=== PATIENT | male | born 1995 ===

== ENCOUNTER 2018-07-01 11:35 | Emergency (ER) | payer OTHER ==
[2018-07-01 11:45] VITALS: BP 122/77
--- NOTE | 2018-07-01 12:28 | UC ---
Throat Pain/Nasal Juan HPI - HPI Summary HPI Summary: 22 yo male presents with sore throat for the last 3 days. Sore throat has been getting progressively worse. Last night he was looking in his throat and noticed a "cut" on his left tonsil that looked like it was bleeding. He is able to eat and drink, but has significant pain. Unsure how or when the tonsil got cut. Denies fever, chills, sinus symptoms, cough, rash, n/v. - History of Current Complaint Chief Complaint: UCGeneralIllness Stated Complaint: MOUTH,THROAT COMPLAINT Time Seen by Provider: 07/01/18 12:28 Hx Obtained From: Patient Onset/Duration: Sudden Onset Severity: Moderate Pain Intensity: 6 Pain Scale Used: 0-10 Numeric - Allergies/Home Medications Allergies/Adverse Reactions: Allergies Allergy/AdvReac Type Severity Reaction Status Date / Time No Known Allergies Allergy Verified 07/01/18 11:46 PMH/Surg Hx/FS Hx/Imm Hx - Additional Past Medical History Additional PMH: None - Surgical History Surgical History: None - Family History Known Family History: Positive: None - Social History Occupation: Employed Full-time Lives: With Family Alcohol Use: None Substance Use Type: Marijuana Smoking Status (MU): Never Smoked Tobacco Review of Systems All Other Systems Reviewed And Are Negative: Yes Constitutional: Positive: Negative Skin: Positive: Negative Eyes: Positive: Negative ENT: Positive: Sore Throat Respiratory: Positive: Negative Cardiovascular: Positive: Negative Gastrointestinal: Positive: Negative Neurological: Positive: Negative Psychological: Positive: Negative Physical Exam - Summary Physical Exam Summary: GENERAL: NAD. WDWN. No pain distress. SKIN: No rashes, sores, lesions, or open wounds. HEENT: Head: AT/NC Eyes: Conjunctiva clear without inflammation or discharge. Ears: Hearing grossly normal. TMs intact, no bulging, erythema, or edema. Nose: Nasal mucosa pink and moist. NTTP maxillary and frontal sinus. Throat: Posterior oropharynx mild erythema and 2+ tonsillar enlargement. Left tonsil with 5mm ?laceration with clotted blood. No exudates. Uvula midline. No hoarse voice or muffled voice. NECK: Supple. Nontender. No lymphadenopathy. CHEST: CTAB. No r/r/w. No accessory muscle use. Breathing comfortably and in no distress. CV: RRR. Without m/r/g. Pulses intact. Cap refill <2seconds NEURO: Alert. PSYCH: Age appropriate behavior. Triage Information Reviewed: Yes Vital Signs: Initial Vital Signs Temp 98.8 F 07/01/18 11:42 Pulse 81 07/01/18 11:42 Resp 18 07/01/18 11:42 BP 122/77 07/01/18 11:42 Pulse Ox 100 07/01/18 11:42 Laboratory Tests 07/01/18 12:14 Group A Strep Rapid Negative Vital Signs Reviewed: Yes Throat Pain/Nasal Course/Dx - Course Course Of Treatment: POC strep negative. Will send for a throat culture and cover him with clinda and chlorhexidine. - Differential Dx/Diagnosis Provider Diagnosis: Acute tonsillitis Discharge - Sign-Out/Discharge Documenting (check all that apply): Patient Departure All imaging exams completed and their final reports reviewed: No Studies - Discharge Plan Condition: Stable Disposition: HOME Prescriptions: Chlorhexidine MW 0.12% 473ML* [Peridex Mouth Wash 0.12%] 15 ml MT DAILY #1 bottle Clindamycin Cap(NF) [Clindamycin Cap 300 mg Cap(NF)] 300 mg PO TID #30 cap Ibuprofen TAB* [Motrin TAB* 800 MG] 800 mg PO Q8H PRN #60 tab PRN Reason: Pain Lidocaine 2% VISCOUS* [Xylocaine 2% Viscous*] 15 ml SWISH SWAL Q6H PRN #250 ml PRN Reason: Pain Patient Education Materials: Pharyngitis (ED) Referrals: No Primary Care Phys,NOPCP [Primary Care Provider] - Additional Instructions: If you develop a fever, shortness of breath, chest pain, new or worsening symptoms - please call your PCP or go to the ED. 1) You may swallow the chlorhexidine mouth wash, but it may upset your stomach - please try to gargle it and spit it out. - Billing Disposition and Condition Condition: STABLE Disposition: Home
== END 2018-07-01 13:06 | disposition home or self-care (01) ==
LOC: UCEAST 11:35
DX: J03.90 Acute tonsillitis, unspecified (principal)
CPT/HCPCS: 87070; 87651; 99202; G0463

== ENCOUNTER 2019-02-06 11:02 | Emergency (ER) | payer OTHER ==
[2019-02-06] MEDS ORDERED: Lidocaine 1% MPF ** 5 ML VIAL IM ONE (11:07)
[2019-02-06] MEDS ORDERED: cefTRIAXone VIAL(*) 250 MG VIAL IM ONE (11:07)
--- NOTE | 2019-02-06 11:13 | UC ---
Complaint Male HPI - HPI Summary HPI Summary: 23-year-old male accomplained by girlfriend for STD exposure. Patient states 2 weeks ago he tested positive for chlamydia. He was treated with Jackson presumably azithromycin. Patient informed preference and she came here for STD testing. He is concerned as he is not treated for gonorrhea and would like treatment. Patient also requesting HIV and syphilis testing. Patient denies dysuria or penile lesions. - History of Current Complaint Stated Complaint: PERSONAL Time Seen by Provider: 02/06/19 11:07 - Allergies/Home Medications Allergies/Adverse Reactions: Allergies Allergy/AdvReac Type Severity Reaction Status Date / Time No Known Allergies Allergy Verified 01/28/19 09:51 PMH/Surg Hx/FS Hx/Imm Hx Previously Healthy: Yes GI/ History: Other - Chlamydia Other History Of: Negative For: Anticoagulant Therapy - Surgical History Surgical History: None - Family History Known Family History: Positive: None, Non-Contributory - Social History Alcohol Use: Occasionally Substance Use Type: Marijuana Smoking Status (MU): Former Smoker Review of Systems All Other Systems Reviewed And Are Negative: Yes Genitourinary: Negative: Frequency, Urgency, Vaginal/Penile Burning, Vaginal/ Penile Itching, Vaginal/Penile Discharge, Vaginal/Penile Pain Physical Exam - Summary Physical Exam Summary: General: Well appearing, no distress Cardiovascular: Skin is well perfused Pulmonary: No respiratory distress, no tachypnea Abdomen: Non-distended Skin: Warm, pink, dry MSK: no edema Psych: Normal affect Neuro: A&Ox3 Complaint Male Course/Dx - Course Course Of Treatment: 23-year-old male who presents for STD testing and treatment. Patient is asymptomatic however given recent positive chlamydia but not treated for gonorrhea, chuy get ceftriaxone IM 1. HIV and RPR sent out. - Differential Dx/Diagnosis Provider Diagnosis: STD exposure Discharge - Sign-Out/Discharge Documenting (check all that apply): Patient Departure All imaging exams completed and their final reports reviewed: No Studies - Discharge Plan Condition: Stable Disposition: HOME Patient Education Materials: Chlamydia (ED), Sexually Transmitted Diseases (ED) , Safe Sex (ED) Referrals: [facility] [Outside] Additional Instructions: You were seen for STD testing. We sent a gonorrhea and chlamydia test, this will take several days result. We prophylactically treated you for exposure to gonorrhea since you were treated for chlamydia. We also sent an HIV blood test and syphilis test. You will be called if any of these results are abnormal. If you test positive for an STD please inform your partners as they need to be treated as well. Please practice safe sex and use protection including condoms. - Billing Disposition and Condition Condition: STABLE Disposition: Home
[2019-02-06 11:32] VITALS: BP 128/63
== END 2019-02-06 11:59 | disposition home or self-care (01) ==
LOC: UCEAST 11:02
DX: Z20.2 Contact with and (suspected) exposure to infections with a predominantly sexual mode of transmission (principal); Z87.891 Personal history of nicotine dependence
CPT/HCPCS: 36415; 86780; 87389; 96372; 99212; G0463; J0696

== ENCOUNTER 2019-07-25 15:30 | Emergency (ER) | payer OTHER ==
[2019-07-25 15:41] VITALS: BP 117/82
--- NOTE | 2019-07-25 16:02 | UC ---
Ear Complaint HPI - HPI Summary HPI Summary: His right ear started bothering him last night. He hasn't had a recent upper respiratory tract infection. He has had troubles with ear infections in the past. He hasn't been swimming. - History of Current Complaint Chief Complaint: UCEar Stated Complaint: EAR COMPLAINT Time Seen by Provider: 07/25/19 15:52 Hx Obtained From: Patient Onset/Duration: Sudden Onset Severity Initially: Moderate Severity Currently: Moderate Pain Intensity: 7 Aggravating Factors: Nothing Alleviating Factors: Nothing Associated Signs/Symptoms: Negative: Discharge, Hearing Loss, Foreign Body Sensation, Trauma to Ear, URI Symptoms - Allergies/Home Medications Allergies/Adverse Reactions: Allergies Allergy/AdvReac Type Severity Reaction Status Date / Time No Known Allergies Allergy Verified 07/25/19 15:41 Home Medications: Home Medications Ibuprofen TAB* [Motrin TAB* 800 MG] 800 mg PO Q6H PRN 07/25/19 [History Confirmed 07/25/19] PMH/Surg Hx/FS Hx/Imm Hx Previously Healthy: Yes Other History Of: Negative For: Anticoagulant Therapy - Surgical History Surgical History: None - Family History Known Family History: Positive: None, Non-Contributory - Social History Alcohol Use: Daily Alcohol Amount: 2 beers Substance Use Type: Marijuana Substance Use Comment - Amount & Last Used: daily 2x Smoking Status (MU): Light Every Day Tobacco Smoker Review of Systems All Other Systems Reviewed And Are Negative: Yes Constitutional: Positive: Negative Skin: Positive: Negative Eyes: Positive: Negative ENT: Positive: Ear Ache. Negative: Nasal Discharge Respiratory: Positive: Negative Cardiovascular: Positive: Negative Neurological: Positive: Negative Physical Exam - Summary Physical Exam Summary: He is nontoxic in appearance with stable vital signs aside from mild tachycardia. Triage Information Reviewed: Yes Appearance: Well-Appearing, No Pain Distress, Well-Nourished Vital Signs: Initial Vital Signs Temp 99.6 F 07/25/19 15:35 Pulse 114 07/25/19 15:35 Resp 16 07/25/19 15:35 BP 117/82 07/25/19 15:35 Pulse Ox 100 07/25/19 15:35 Vital Signs Reviewed: Yes ENT: Positive: Pharyngeal erythema, TM bulging, TM red - right Dental Exam: Normal Neck exam: Normal Respiratory Exam: Normal Cardiovascular Exam: Normal Abdominal Exam: Normal Ear Complaint Course/Dx - Course Course Of Treatment: I will treat him for otitis media with high-dose amoxicillin - Differential Dx/Diagnosis Provider Diagnosis: Otitis media Discharge ED - Sign-Out/Discharge Documenting (check all that apply): Patient Departure All imaging exams completed and their final reports reviewed: No Studies - Discharge Plan Condition: Stable Disposition: HOME Patient Education Materials: Ear Infection (ED) Referrals: No Primary Care Phys,NOPCP [Primary Care Provider] - [facility] [Outside] - Billing Disposition and Condition Condition: STABLE Disposition: Home
== END 2019-07-25 16:20 | disposition home or self-care (01) ==
LOC: UCEAST 15:30
DX: H66.91 Otitis media, unspecified, right ear (principal); F17.290 Nicotine dependence, other tobacco product, uncomplicated
CPT/HCPCS: 99212; G0463